=== PATIENT | male | born 1985 | race Caucasian/White ===

== ENCOUNTER → 2017-10-05 | Outpatient (CLI) | payer OTHER | LOC: CAT 14:38 | DX: R10.12 Left upper quadrant pain (principal) ==

== ENCOUNTER → 2019-05-13 | Outpatient (CLI) | payer OTHER | LOC: MRI 07:41 | DX: G93.89 Other specified disorders of brain (principal); Q04.6 Congenital cerebral cysts; J34.1 Cyst and mucocele of nose and nasal sinus; Z85.841 Personal history of malignant neoplasm of brain ==